=== PATIENT | female | born 1970 | race Caucasian/White ===

== ENCOUNTER 2022-01-23 01:22 | Day surgery (SDC) | payer BC, SELFPAY ==
[2022-01-16 15:28] VITALS: BMI 32.0
--- NOTE | 2022-01-16 15:38 | SUR.PREOP ---
Report to the Outpatient Waiting Room, entrance under the green pavilion located off [facility], at time 0830 _on date 01/23/22 . OR Time: ___1030 . - You and your visitor will be asked a series of questions to screen for COVID 19 for your protection. - Only one visitor is allowed at this time. - The patient visitor is requested to leave or wait in car when not with patient. - A mask is required within the hospital. Patients may have clear liquids (water, carbonated beverages, clear teas, apple juice) until 3 hours prior to surgery with a maximum of 20 ounces. - No food from midnight until time of surgery - Infants may have breast milk until 4 hours before surgery, formula 6 hours prior to surgery. - Children will be allowed to drink immediately following surgery. If applicable, please bring a bottle or sippy cup to assist with drinking. Juice, water, soda, and popsicles are readily available. For infants on formula, please bring formula the day of surgery. Pacifiers are allowed. Take the following medications with a SIP of water the morning of surgery: __levothyroxine Medications to discontinue per physician _vitamins Date to take last dose__01/29/22 Please no make-up, nail irish, hairspray, perfume, deodorant, or body powder the day of surgery. No jewelry (including any body piercings) or valuables the day of surgery, leave them at home. Please take a shower or bath the night before, or the morning of, surgery with an antibacterial soap. Wear comfortable, loose fitting clothing. Children are encouraged to wear pajamas. - Jewelry must be removed prior to entering the operating room. Rings and piercings that are not removed may be cut off. - The hospital will not accept responsibility for valuables. - Please leave all valuables, including medications, at home the day of surgery. If you are going home after surgery, a licensed test driver must drive you home. - NO public transportation without another adult. - We recommend that an adult stay with you for 24 hours following discharge. - We also recommend that you do not drive, make important decision, drink alcoholic beverages, or take any drugs that were not prescribed by your health care provider for at least 24 hours after your discharge time. For Pediatric surgeries, we recommend two adults accompany the child home (only one inside the building at this time). Follow any additional instructions given to you from your surgeon. If you or anyone in your household have experienced Covid symptoms in the past week, please notify your surgeon or the nurse liaison at the phone number below for possible testing. Telephone instructions given to _jono velez and asked if any additional questions and then verbalized understanding. Patient advised to call surgeon office or pre surgery nurse liaison [phone] if any additional questions.
--- NOTE | 2022-01-23 08:42 | WPDANESEPPF ---
Anes - Initial Pre Proc Eval Procedure: Operation Date: 01/23/22 10:30 Proposed Procedures p Hysteroscopy Dilation and Curettage, Possible Polypectomy - Delano Whitlock MD Date/Time: 01/23/22 08:42 Surgeon: Delano Whitlock MD Pre Op Diagnosis: lesion of endometrium Patient Data Age: 51 Gender: F Height: 1.73 m Weight: 95.45 kg Allergies Allergy/AdvReac Type Severity Reaction Status Date / Time iodine Allergy Intermediate Vomiting Verified 01/23/22 09:27 shellfish derived Allergy Intermediate Hives Verified 01/23/22 09:27 Sulfa (Sulfonamide Allergy Intermediate Hives Verified 01/23/22 09:27 Antibiotics) Home Medications Medication Instructions Recorded Confirmed Type atorvastatin 20 mg tablet (Lipitor) 20 mg PO DAILY 01/16/22 01/23/22 History cholecalciferol (vitamin D3) 125 125 mcg PO DAILY 01/16/22 01/23/22 History mcg (5,000 unit) tablet (Vitamin D3) duloxetine 60 mg capsule,delayed 60 mg PO HS 01/16/22 01/23/22 History release (Cymbalta) levothyroxine 50 mcg capsule 50 mcg PO DAILY 01/16/22 01/23/22 History magnesium 500 mg tablet 500 mg PO DAILY 01/16/22 01/23/22 History Patient hx anesthesia problems: none Family hx anesthesia problems: none Results Review: All pre-operative results and documents have been reviewed as part of the pre-operative evaluation. [facility] Past Medical History Medical History (Updated 01/22/22 @ 13:39 by Eliud Markham MD) Hyperlipidemia Hypothyroid Social History Social History Smoking status: Former smoker Smoking end date: 07/14/10 Additional smoking assessment comments: 1ppd x 25 years Alcohol intake: current Drinks per week: 1 Living arrangements: with family Spiritual care concerns: No Anes - Eval Final PreProcedure Day of Procedure 01/23/22 08:42 Patient weight: obese Heart: regular rate and rhythm Lungs: clear to auscultation Airway: Mallampati scale class II Neurological: alert and oriented Last oral intake: >/= 8 hours ASA classification: II Emergent: no Anesthetic plan: proceed Anesthesia type and monitoring: general GIVS and standard monitoring Results Review: All pre-operative results and documents have been reviewed as part of the pre-operative evaluation. Informed Consent: The patient's anesthetic plan and its attendant risks and benefits were discussed with the patient/family/POA. Questions were solicited and answers provided to the satisfaction of the patient/family/POA.
--- NOTE | 2022-01-23 08:56 | WPDHPUPDATE1 ---
History and Physical Update Update Date/Time: 01/23/22 08:56 History and Physical has been reviewed, including an updated exam of the patient. There are NO changes in the patient's condition. Risks, benefits, and alternatives have been discussed and questions answered. Patient agrees to proceed with procedure.
[2022-01-23] MEDS: LACTATED RINGERS 1,000 ML 30 ML IV CONT (09:00)
[2022-01-23] MEDS: ACETAMINOPHEN 500 MG TABLET 1000 MG PO (09:02)
[2022-01-23 09:29] VITALS: BP 125/72; PULSE 91; RESP 18; TEMP 36.3; O2SAT 97
[2022-01-23] MEDS: LIDOCAINE HCL 1% PF 30 ML VIAL 10 ML INFILTRATE (09:55)
--- NOTE | 2022-01-23 10:44 | W.PM.PROC2 ---
Procedure Note - Detailed Date of Procedure 01/23/22 Pre-op Diagnosis lesion of endometrium Post-op Diagnosis Same Procedure Performed Hysteroscopy D&C, adhesiolysis Surgeon Delano Whitlock MD Anesthesia MAC Indications abnormal uterine bleeding Findings Densely scarred endometrium, no apparent polyp or cancer. Description of Procedure the patient was taken the operating room. She was prepped and draped in the dorsal lithotomy position after induction of mac anesthesia. A speculum was placed in the vagina. The cervix was grasped with a tenaculum. The cervix was dilated about 1 cm. The hysteroscope was inserted. The intrauterine cavity and endocervix were evaluated. Adhesiolysis was performed for 30 minutes. This was performed using blunt dissection and scissors. A endometrial cavity was performed we and scar tissue was broken down. There was little normal endometrium present. Hysteroscope was withdrawn. A medium-size curette was used to curettage all the surfaces were within the endometrial cavity. the sample was collected on Telfa and sent to pathology. The hysteroscope was reinserted and the above findings were noted. Patient tolerated the procedure well. The speculum and tenaculum were removed. She was taken recovery room in stable condition. Sponge lap and needle counts were correct x2. Estimated Blood Loss 40 Drains No Packing No Pathology Yes Complications No immediate complications Condition Stable Disposition PACU
[2022-01-23 10:45] VITALS: BP 126/75; PULSE 103; RESP 20; O2SAT 96
[2022-01-23] MEDS: oxyCODONE HCL (*CRX) 5 MG TAB IR PO (10:55)
[2022-01-23] MEDS: fentaNYL CITRATE INJ (*CRX) 100 MCG/2 ML VIAL 25 MCG IV PUSH (11:24)
[2022-01-23 11:25] VITALS: BP 125/76; PULSE 75; RESP 14
[2022-01-23 11:45] VITALS: BP 135/80; PULSE 68; RESP 14
== END 2022-01-23 11:50 | disposition home or self-care (01) ==
PROVIDERS: PCP Family Medicine; Visit Provider Obstetrics & Gynecology
PROC: 0U5B8ZZ Destruction of Endometrium, Via Natural or Artificial Opening Endoscopic (ICD-10-PCS; CPT 58563; principal; 2022-01-23 10:30)
DX: K66.0 Peritoneal adhesions (postprocedural) (postinfection) (principal); N93.9 Abnormal uterine and vaginal bleeding, unspecified; E78.5 Hyperlipidemia, unspecified; E03.9 Hypothyroidism, unspecified; Z87.891 Personal history of nicotine dependence; E66.9 Obesity, unspecified; Z68.32 Body mass index [BMI] 32.0-32.9, adult
CPT/HCPCS: 58558; 88305; A9270; J1100; J2250; J2405; J2704; J3010; J7030; J7120

== ENCOUNTER 2023-08-15 01:10 | Day surgery (SDC) | payer BC, SELFPAY ==
[2023-07-22 12:56] VITALS: BMI 32.1
--- NOTE | 2023-08-13 11:54 | SUR.PREOP ---
Patient called regarding upcoming procedure. Reviewed preop instructions, appointment times, and procedure prep.
[2023-08-15 11:52] VITALS: BP 110/86; PULSE 101; RESP 20; TEMP 36.6; O2SAT 98; BMI 30.6
[2023-08-15] MEDS: LACTATED RINGERS 1,000 ML 150 ML IV CONT (12:09)
--- NOTE | 2023-08-15 12:31 | PM.HPGS ---
History of Present Illness History of Present Illness Consent: Risks, benefits, and alternatives have been discussed and questions answered. Patient agrees to proceed with procedure. Chief complaint: abdominal pain,Mixed Irritable Bowel Syndrome, Narrative: Swati Pradhan is a 53 year old female who has been troubled by very irregular bowel movements. She will often have loose stools have up to 3 or 4 bowel movements in 1 day and then may not have a bowel movement for several days. There is also family history of Crohn's disease. Her mother in fact has had a total colectomy for that. The patient herself has not had blood her stools or any significant amount of abdominal pain. Review of Systems Review of Systems: All systems reviewed & are unremarkable except as noted in HPI and below PMFSH Past Medical History Medical History Abdominal cramping Altered bowel habits External hemorrhoids Family history of Crohn's disease Hyperlipidemia Hypothyroid Mixed irritable bowel syndrome Obesity Social History Social History Smoking packs per day: 1 Smoking cigarettes per day: 20.0 Years smoked: 30 Smoking pack-years: 30.00 Smoking status: Former smoker Tobacco type: cigarettes Smoking end date: 07/14/10 Additional smoking assessment comments: 1ppd x 25 years Alcohol intake: current Drinks per week: 1 Alcohol use details: occasional Substance use: current Substance use type: marijuana Other substance usage details: vape pen marijuana at bedtime most nights Living arrangements: with family Gender identity (if verbalized by the patient): Female Sexual Orientation (if Verbalized by the Patient): Straight or Heterosexual Spiritual care concerns: No Meds Home Medications and Allergies Home Medications Medication Instructions Recorded Confirmed Type atorvastatin 20 mg tablet (Lipitor) 20 mg PO DAILY 01/16/22 07/22/23 History cholecalciferol (vitamin D3) 125 125 mcg PO DAILY 01/16/22 07/22/23 History mcg (5,000 unit) tablet (Vitamin D3) levothyroxine 50 mcg capsule 50 mcg PO DAILY 01/16/22 07/22/23 History magnesium 500 mg tablet 1,500 mg PO DAILY 07/18/23 07/22/23 History venlafaxine 150 mg 150 mg PO DAILY 07/18/23 07/22/23 History capsule,extended release 24 hr (Effexor XR) semaglutide (weight loss) 1 mg/0.5 1 mg subcut WE 07/22/23 History mL subcutaneous pen injector (Wegovy) Allergies Allergy/AdvReac Type Severity Reaction Status Date / Time iodine Allergy Intermediate Vomiting Verified 08/15/23 11:47 shellfish derived Allergy Intermediate Hives Verified 08/15/23 11:47 Sulfa (Sulfonamide Allergy Intermediate Hives Verified 08/15/23 11:47 Antibiotics) Vital Signs Vital Signs - 24 hr 08/15/23 11:52 Temperature 36.6 C Pulse Rate 101 H Respiratory Rate 20 Blood Pressure 110/86 Pulse Oximetry 98 Oxygen Delivery Room Air Exam Const: General: alert Orientation/consciousness: patient oriented x3 Resp: Auscultation: clear to auscultation bilaterally Cardio: Rhythm: regular rhythm GI: GI Palp: Yes Soft to palpation and No Tenderness to palpation present (GI) Neuro: General: patient oriented x3 Assessment and Plan Assessment and plan (1) Altered bowel habits: Code(s): R19.4 - Change in bowel habit Status: Acute Assessment and Plan: Colonoscopy with possible biopsy or polypectomy or cautery or injection of substances.
--- NOTE | 2023-08-15 12:50 | WPDANESEPPF ---
Anes - Initial Pre Proc Eval Procedure: Operation Date: 08/15/23 13:00 Proposed Procedures p Colonoscopy - Yimi Bingham MD Date/Time: 08/15/23 12:50 Surgeon: Yimi Bingham MD Pre Op Diagnosis: abdominal pain,Mixed Irritable Bowel Syndrome, Patient Data Age: 53 Gender: F Height: 1.73 m Weight: 91.3 kg Last Vital Signs Temp 97.9 F 08/15/23 11:52 Pulse 101 H 08/15/23 11:52 Resp 20 08/15/23 11:52 BP 110/86 08/15/23 11:52 Pulse Ox 98 08/15/23 11:52 O2 Del Method Room Air 08/15/23 11:52 Allergies Allergy/AdvReac Type Severity Reaction Status Date / Time iodine Allergy Intermediate Vomiting Verified 08/15/23 11:47 shellfish derived Allergy Intermediate Hives Verified 08/15/23 11:47 Sulfa (Sulfonamide Allergy Intermediate Hives Verified 08/15/23 11:47 Antibiotics) Home Medications Medication Instructions Recorded Confirmed Type atorvastatin 20 mg tablet (Lipitor) 20 mg PO DAILY 01/16/22 07/22/23 History cholecalciferol (vitamin D3) 125 125 mcg PO DAILY 01/16/22 07/22/23 History mcg (5,000 unit) tablet (Vitamin D3) levothyroxine 50 mcg capsule 50 mcg PO DAILY 01/16/22 07/22/23 History magnesium 500 mg tablet 1,500 mg PO DAILY 07/18/23 07/22/23 History venlafaxine 150 mg 150 mg PO DAILY 07/18/23 07/22/23 History capsule,extended release 24 hr (Effexor XR) semaglutide (weight loss) 1 mg/0.5 1 mg subcut WE 07/22/23 History mL subcutaneous pen injector (Wegovy) Patient hx anesthesia problems: none Family hx anesthesia problems: none Results Review: All pre-operative results and documents have been reviewed as part of the pre-operative evaluation. [facility] Past Medical History Medical History Abdominal cramping Altered bowel habits External hemorrhoids Family history of Crohn's disease Hyperlipidemia Hypothyroid Mixed irritable bowel syndrome Obesity Social History Social History Smoking packs per day: 1 Smoking cigarettes per day: 20.0 Years smoked: 30 Smoking pack-years: 30.00 Smoking status: Former smoker Tobacco type: cigarettes Smoking end date: 07/14/10 Additional smoking assessment comments: 1ppd x 25 years Alcohol intake: current Drinks per week: 1 Alcohol use details: occasional Substance use: current Substance use type: marijuana Other substance usage details: vape pen marijuana at bedtime most nights Living arrangements: with family Gender identity (if verbalized by the patient): Female Sexual Orientation (if Verbalized by the Patient): Straight or Heterosexual Spiritual care concerns: No Anes - Eval Final PreProcedure Day of Procedure 08/15/23 12:50 Patient weight: obese Heart: regular rate and rhythm Lungs: clear to auscultation Airway: Mallampati scale Neurological: alert and oriented Last oral intake: >/= 8 hours ASA classification: II Emergent: no Anesthetic plan: proceed Anesthesia type and monitoring: general GIVS and standard monitoring Results Review: All pre-operative results and documents have been reviewed as part of the pre-operative evaluation. Informed Consent: The patient's anesthetic plan and its attendant risks and benefits were discussed with the patient/family/POA. Questions were solicited and answers provided to the satisfaction of the patient/family/POA.
[2023-08-15 13:20] VITALS: BP 84/51; PULSE 96; RESP 20; O2SAT 98
[2023-08-15 13:30] VITALS: BP 97/58; PULSE 84; RESP 20; O2SAT 97
[2023-08-15 13:40] VITALS: BP 107/65; PULSE 68; RESP 20; O2SAT 100
== END 2023-08-15 13:50 | disposition home or self-care (01) ==
PROVIDERS: PCP Family Medicine; Visit Provider Internal Medicine Gastroenterology
PROC: 0DJD8ZZ Inspection of Lower Intestinal Tract, Via Natural or Artificial Opening Endoscopic (ICD-10-PCS; CPT 45378; principal; 2023-08-15 13:00)
DX: R19.4 Change in bowel habit (principal); E78.5 Hyperlipidemia, unspecified; E03.9 Hypothyroidism, unspecified; F12.90 Cannabis use, unspecified, uncomplicated; E66.9 Obesity, unspecified; Z68.30 Body mass index [BMI] 30.0-30.9, adult; Z79.85 Long-term (current) use of injectable non-insulin antidiabetic drugs; Z87.891 Personal history of nicotine dependence
CPT/HCPCS: 45380; 88305; J2704; J7120